=== PATIENT | male | born 1980 | race Caucasian/White ===

== ENCOUNTER 2021-08-16 01:26 | Emergency (ER) | payer BC, SELFPAY ==
[2021-08-16] MEDS ORDERED: Morphine 10 MG/ML VIAL ONE (02:31)
[2021-08-16] MEDS ORDERED: PROPOFOL 20 ML ONE (06:59)
[2021-08-16] MEDS ORDERED: ePHEDrine 50 MG/ML VIAL ONE (06:59)
[2021-08-16] MEDS ORDERED: Fentanyl 100 MCG/2 ML VIAL ONE (07:01)
[2021-08-16] MEDS ORDERED: Lidocaine 1% PF 5 ML VIAL ONE (07:03)
[2021-08-16] MEDS ORDERED: PHENYLEPHRINE-NS 100 MCG/ML 10 ML SYRINGE ONE (07:03)
[2021-08-16] MEDS ORDERED: Rocuronium Bromide 10 MG/ML (10ML VIAL) ONE (07:03)
[2021-08-16] MEDS ORDERED: Ondansetron PF 4 MG/2 ML Vial ONE (07:03)
[2021-08-16] MEDS ORDERED: Succinylcholine 200 MG/10 ml SYRINGE FS ONE (07:03)
[2021-08-16 07:21] LABS: SARS-CoV-2 NAA Rapid Test Not Detected (NotDetected)
== END 2021-08-16 06:44 | disposition admitted as inpatient to this hospital (09) ==
LOC: CSHERS 01:26
DX: T18.128A Food in esophagus causing other injury, initial encounter (principal); Z20.822 Contact with and (suspected) exposure to COVID-19; F17.210 Nicotine dependence, cigarettes, uncomplicated
CPT/HCPCS: 96374; J2270; J2405; J2704; J3010; J3490; U0002